=== PATIENT | female | born 1995 | race Caucasian/White ===

== ENCOUNTER 2017-06-26 15:54 | Emergency (ER) | payer SELFPAY ==
[~2017-06-26] VITALS: Ht 170.2 cm; Wt 54.4 kg
--- NOTE | 2017-06-26 17:02 | PHYS DOC ---
Past History Past Medical History: Anxiety, Other Past Surgical History: No Surgical History Smoking: Non-smoker Alcohol Use: Rarely Drug Use: None Adult General Chief Complaint Chief Complaint: BACK PAIN OR INJURY HPI HPI Patient is a 22 year old female who presents with complaint of left-sided back pain. Patient states that the pain started 3 days ago after coming home from work. 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 Patient noted that the pain was in the mid thoracic region just below her left shoulder blade. Patient states that the pain worsens with movement and when she takes a deep breath. The patient has taken ibuprofen with mild relief in symptoms. Patient's pain hours and remained persistent this prompting the patient come to the emergency department for evaluation. Patient rates her pain as 4 out of 10. Patient denies any associated symptoms with her pain including fever, nausea, hematuria, or abdominal pain. Patient denies any known trauma to the affected area. Review of Systems Review of Systems Constitutional: Denies fever or chills [] Eyes: Denies change in visual acuity, redness, or eye pain [] HENT: Denies nasal congestion or sore throat [] Respiratory: Denies cough or shortness of breath [] Cardiovascular: Denies chest pain or edema[] GI: Denies abdominal pain, nausea, vomiting, bloody stools or diarrhea [] : Denies dysuria or hematuria [] Musculoskeletal: Left-sided back pain[] Integument: Denies rash or skin lesions [] Neurologic: Denies headache, focal weakness or sensory changes [] All other systems were reviewed and found to be within normal limits, except as documented in this note. Allergies Allergies Allergies Coded Allergies Type Severity Reaction Last Updated Verified No Known Drug Allergies 12/20/14 No Physical Exam Physical Exam Constitutional: Alert, afebrile, no acute distress, vital signs stable. [] HENT: Normocephalic, atraumatic, bilateral external ears normal, oropharynx moist, no oral exudates, nose normal. [] Eyes: PERRLA, EOMI, conjunctiva normal, no discharge. [] Neck: Normal range of motion, no tenderness, supple, no stridor. [] Cardiovascular:Heart rate regular rhythm, no murmur [] Lungs & Thorax: Bilateral breath sounds clear to auscultation [] Abdomen: Bowel sounds normal, soft, no tenderness, no masses, no pulsatile masses. [] Skin: Warm, dry, no erythema, no rash. [] Back: No midline tenderness, left mid lower thoracic wall tenderness to palpation, no flank ecchymosis. [] Extremities: No tenderness, no cyanosis, no clubbing, ROM intact, no edema. [] Neurologic: Alert and oriented X 3, normal motor function, normal sensory function, no focal deficits noted. [] Current Patient Data Vital Signs Vital Signs Date Time Temp Pulse Resp B/P (MAP) Pulse Ox O2 Delivery O2 Flow Rate FiO2 06/26/17 16:05 97.7 108 16 98 Room Air Lab Results Laboratory Tests Test 06/26/17 17:00 Urine Collection Type Unknown Urine Color Yellow Urine Clarity Hazy Urine pH 5.5 Urine Specific [place] 1.020 Urine Protein Neg Urine Glucose (UA) Neg mg/dL Urine Ketones (Stick) Neg mg/dL Urine Blood Neg Urine Nitrite Neg Urine Bilirubin Neg Urine Urobilinogen Dipstick 0.2 mg/dL Urine Leukocyte Esterase Neg Urine RBC 0 /HPF Urine WBC Occ /HPF Urine Squamous Epithelial Cells Many /LPF Urine Bacteria Few /HPF Urine Mucus Slight /LPF EKG EKG Not performed[] Radiology/Procedures Radiology/Procedures Not performed[] Course & Med Decision Making Course & Med Decision Making Pertinent Labs and Imaging studies reviewed. (See chart for details) Urinalysis results negative for active infection. Patient's symptoms consistent with mid back muscle strain. Patient started on Flexeril and ibuprofen. Patient will continue on outpatient therapy with Flexeril and ibuprofen. Advised follow- up with primary doctor in 5 days for reevaluation and to return emergency department for any worsening symptoms. Patient voiced understanding and in agreement with treatment plan. Dragon Disclaimer Dragon Disclaimer This electronic medical record was generated, in whole or in part, using a voice recognition dictation system. Departure Departure: Impression: Primary Impression: Back strain Disposition: 01 HOME, SELF-CARE Condition: GOOD Referrals: PCPMILTON (PCP) Patient Instructions: Muscle Strain Additional Instructions: Follow-up with primary doctor in 5 days for reevaluation. Return to emergency department for any worsening symptoms. Scripts Ibuprofen (IBUPROFEN) 400 Mg Tablet 1 TAB PO PRN Q6HRS Y for PAIN, #20 TAB Prov: NICOLE PIMENTEL MD 06/26/17 Cyclobenzaprine Hcl (CYCLOBENZAPRINE HCL) 10 Mg Tablet 1 TAB PO QHS Y for MUSCLE PAIN, #15 TAB Prov: NICOLE PIMENTEL MD 06/26/17 Problem Qualifiers Primary Impression: Back strain Encounter type: initial encounter Qualified Codes: S39.012A - Strain of muscle, fascia and tendon of lower back, initial encounter NICOLE PIMENTEL MD Jun 26, 2017 17:02
[2017-06-26 18:05] LABS: BACTERIA,URINE FEW /HPF (0-FEW); BILIRUBIN,URINE NEG (NEG); CLARITY,URINE HAZY; COLOR,URINE YELLOW; GLUCOSE,URINE NEG (NEG); NITRITE,URINE NEG (NEG); RBC,URINE 0 /HPF (0-2); SQUAMOUS EPITHELIAL CELL,UR MANY /LPF; UROBILINOGEN,URINE 0.2 mg/dL (0.2 mg/dL); WBC,URINE OCC /HPF (0-4)
[2017-06-26] MEDS ORDERED: IBUP400T18 PO (18:11)
[2017-06-26] MEDS ORDERED: CYCL-331 PO (18:11)
[2017-06-26] MEDS ORDERED: CYCLOBENZAPRINE 10 MG TABLET. PO ONE (18:15)
[2017-06-26] MEDS ORDERED: IBUPROFEN 400 MG TABLET. PO ONE (18:15)
[2017-06-26 18:20] VITALS: BP 116/88
== END 2017-06-26 18:25 | disposition home or self-care (01) ==
LOC: ER 15:54
DX: S29.012A Strain of muscle and tendon of back wall of thorax, initial encounter (principal); F41.9 Anxiety disorder, unspecified; X58.XXXA Exposure to other specified factors, initial encounter; Y93.89 Activity, other specified; Y99.8 Other external cause status; Y92.89 Other specified places as the place of occurrence of the external cause
CPT/HCPCS: 81001; 81025; 99283

== ENCOUNTER 2018-05-02 17:56 | Emergency (ER) | payer OTHER ==
[~2018-05-02] VITALS: Ht 167.6 cm; Wt 56.7 kg
[~2018-05-02 17:56] MED LIST: CYCL-331 PO; IBUP400T18 PO
[2018-05-02] MEDS ORDERED: ACETAMINOPHEN 325 MG TABLET PO ONE (18:30)
[2018-05-02 18:35] LABS: BACTERIA,URINE 0 /HPF (0-FEW); BILIRUBIN,URINE NEG (NEG); CLARITY,URINE CLEAR; COLOR,URINE YELLOW; GLUCOSE,URINE NEG (NEG); NITRITE,URINE NEG (NEG); RBC,URINE RARE /HPF (0-2); SQUAMOUS EPITHELIAL CELL,UR FEW /LPF; UROBILINOGEN,URINE 0.2 mg/dL (0.2 mg/dL); WBC,URINE OCC /HPF (0-4)
[2018-05-02] MEDS ORDERED: ONDANSETRON PF 4 MG/2 ML VIAL. IV ONE (19:00)
[2018-05-02 19:13] LABS: BASO % 0 % (0-3); EOS # 0.1 x10^3/uL (0.0-0.7); EOS % 1 % (0-3); HEMATOCRIT 39.1 % (36.0-47.0); HEMOGLOBIN 13.7 g/dL (12.0-15.5); LYMPH # 2.4 x10^3/uL (1.0-4.8); LYMPH % 37 % (24-48); MEAN CORPUSCULAR HEMOGLOBIN 31 pg (25-35); MEAN CORPUSCULAR HGB CONC 35 g/dL (31-37); MEAN CORPUSCULAR VOLUME 88 fL (79-100); MONO # 0.5 x10^3/uL (0.0-1.1); MONO % 8 % (0-9); NEUT # 3.5 x10^3uL (1.8-7.7); NEUT % 54 % (31-73); PLATELET COUNT 181 x10^3/uL (140-400); RED BLOOD COUNT 4.44 x10^6/uL (3.50-5.40); RED CELL DISTRIBUTION WIDTH 12.7 % (11.5-14.5); WHITE BLOOD COUNT 6.5 x10^3/uL (4.0-11.0)
[2018-05-02] MEDS ORDERED: MORPHINE SULFATE 4 MG/ML DISP.SYRIN. IV ONE ×2 (20:15→21:30)
--- NOTE | 2018-05-02 21:51 | RAD ---
Obstetric ultrasound less than 14 weeks COMPARISON: None available at time of exam. HISTORY: Pelvic pain, female. TECHNIQUE: Transabdominal transducer with grayscale, color Doppler and M-mode Doppler sonography. FINDINGS: Uterus measures 10.0 x 10.0 x 7.1 cm. Maternal ovaries not visualized. Single living intrauterine fetus crown-rump length 5.6 cm and gestational sac diameter 5.4 cm with estimated combined sonographic gestational age 11 weeks 6 days and date of delivery November 15, 2018. Subjectively normal volume of amniotic fluid. heart rate 155 bpm. Maternal cervix 3.3 cm. There may be a tiny 7 mm in length marginal subchorionic hemorrhage.. Placenta appears to be posterior and covers the cervical internal loss. No pelvic free fluid. IMPRESSION: Single living intrauterine estimated sonographic gestational age of 11 weeks 6 days. There may be a tiny subcentimeter marginal subchorionic hemorrhage. See discussion above. Electronically signed by: Thierry Benitez MD (05/02/2018 9:47 PM) [facility]
[2018-05-02] MEDS ORDERED: MORPHINE SULFATE 10 MG/ML SYRINGE. ONE (22:29)
[2018-05-02] MEDS ORDERED: MORPHINE SULFATE 10 MG/ML SYRINGE. IV ONE (22:30)
[2018-05-03] MEDS ORDERED: PROCHLORPERAZINE 10 MG/2 ML VIAL. IV ONE (00:30)
--- NOTE | 2018-05-03 01:01 | RAD ---
INDICATION: PELVIC PAIN EVAL RLQ AND RT KIDNEY COMPARISON: None. FINDINGS: Focused ultrasound images of the right kidney and right lower quadrant of abdomen The appendix is not visualized. Right kidney is 9.9 cm without significant hydronephrosis. Possible tiny echogenic focus of mid pole right kidney. Could be prominent fat or a small calcification or nonobstructive stone. Partial visualization of gravid uterus IMPRESSION: 1. The appendix is not visualized. 2. No right-sided hydronephrosis. 3. Maternal right ovary has vascular flow. Electronically signed by: Jb Serna MD (05/03/2018 12:57 AM) [facility]
[2018-05-03 01:08] VITALS: BP 100/65
--- NOTE | 2018-05-03 01:48 | ED.ADGEN ---
Past History Past Medical History: No Pertinent History Past Surgical History: No Surgical History Smoking: Non-smoker Alcohol Use: None Drug Use: None Adult General Chief Complaint Chief Complaint Lower abdominal pain HPI HPI Patient is a G2, P1, estimated 11 week gestation female with confirmed IUP per OB who presents with nausea, vomiting, suprapubic and right lower quadrant pain. Onset was earlier this afternoon. Patient reports severe cramping. She states it feels as though she is in labor or pain worsen labor cramps. Denies pain pain, urinary frequency, urgency burning. No vaginal bleeding or discharge. No hematuria, history of kidney stones. No prior abdominal surgeries. No constipation or diarrhea.[] Review of Systems Review of Systems Review symptoms as per history of present illness. All other review symptoms are negative. All other systems were reviewed and found to be within normal limits, except as documented in this note. Current Medications Current Medications Current Medications Medications (Trade) Dose Ordered Sig/Jacobo Start Time Stop Time Status Last Admin Dose Admin Acetaminophen (Tylenol) 650 mg 1X ONCE 05/02/18 18:30 05/02/18 18:31 DC 05/02/18 18:36 650 MG Fentanyl Citrate (Fentanyl 2ml Vial) 50 mcg 1X ONCE 05/02/18 19:00 05/02/18 19:01 DC 05/02/18 19:02 50 MCG Morphine Sulfate (Morphine 10mg Syringe) 10 mg STK-MED ONCE 05/02/18 22:29 05/02/18 22:30 DC Morphine Sulfate (Morphine 4mg Syringe) 4 mg 1X ONCE 05/02/18 21:30 05/02/18 21:41 DC 05/02/18 21:34 4 MG Ondansetron HCl (Zofran) 4 mg 1X ONCE 05/02/18 19:00 05/02/18 19:01 DC 05/02/18 19:02 4 MG Prochlorperazine Edisylate (Compazine) 10 mg 1X ONCE 05/03/18 00:30 05/03/18 00:31 DC 05/03/18 00:29 10 MG Allergies Allergies Allergies Coded Allergies Type Severity Reaction Last Updated Verified No Known Drug Allergies 12/20/14 No Physical Exam Physical Exam Constitutional: Well developed, well nourished, no acute distress, non-toxic appearance. [] HENT: Normocephalic, atraumatic, bilateral external ears normal, oropharynx moist, no oral exudates, nose normal. [] Eyes: PERRLA, EOMI, conjunctiva normal, no discharge. [] Neck: Normal range of motion, no tenderness, supple, no stridor. [] Cardiovascular:Heart rate regular rhythm, no murmur [] Lungs & Thorax: Bilateral breath sounds clear to auscultation [] Abdomen: Bowel sounds normal, soft, right lower quadrant pain, diffuse tenderness, negative McBurney's point. [] Pelvic: Sternal genitalia, normal, scant white discharge, no bleeding, cervix closed. [] Back: No tenderness, no CVA tenderness. [] Extremities: No tenderness, no cyanosis, no clubbing, ROM intact, no edema. [] Neurologic: Alert and oriented X 3, normal motor function, normal sensory function, no focal deficits noted. [] Psychologic: Affect normal, judgement normal, mood normal. [] Current Patient Data Vital Signs Vital Signs Date Time Temp Pulse Resp B/P (MAP) Pulse Ox O2 Delivery O2 Flow Rate FiO2 05/03/18 01:08 89 19 100/65 (77) 97 Room Air 05/02/18 18:02 98.8 Lab Results Laboratory Tests Test 05/02/18 18:15 05/02/18 19:00 Urine Collection Type Unknown Urine Color Yellow Urine Clarity Clear Urine pH 6.0 Urine Specific [place] 1.015 Urine Protein Neg (NEG-TRACE) Urine Glucose (UA) Neg mg/dL (NEG) Urine Ketones (Stick) Neg mg/dL (NEG) Urine Blood Neg (NEG) Urine Nitrite Neg (NEG) Urine Bilirubin Neg (NEG) Urine Urobilinogen Dipstick 0.2 mg/dL (0.2 mg/dL) Urine Leukocyte Esterase Neg (NEG) Urine RBC Rare /HPF (0-2) Urine WBC Occ /HPF (0-4) Urine Squamous Epithelial Cells Few /LPF Urine Bacteria 0 /HPF (0-FEW) White Blood Count 6.5 x10^3/uL (4.0-11.0) Red Blood Count 4.44 x10^6/uL (3.50-5.40) Hemoglobin 13.7 g/dL (12.0-15.5) Hematocrit 39.1 % (36.0-47.0) Mean Corpuscular Volume 88 fL (79-100) Mean Corpuscular Hemoglobin 31 pg (25-35) Mean Corpuscular Hemoglobin Concent 35 g/dL (31-37) Red Cell Distribution Width 12.7 % (11.5-14.5) Platelet Count 181 x10^3/uL (140-400) Neutrophils (%) (Auto) 54 % (31-73) Lymphocytes (%) (Auto) 37 % (24-48) Monocytes (%) (Auto) 8 % (0-9) Eosinophils (%) (Auto) 1 % (0-3) Basophils (%) (Auto) 0 % (0-3) Neutrophils # (Auto) 3.5 x10^3uL (1.8-7.7) Lymphocytes # (Auto) 2.4 x10^3/uL (1.0-4.8) Monocytes # (Auto) 0.5 x10^3/uL (0.0-1.1) Eosinophils # (Auto) 0.1 x10^3/uL (0.0-0.7) Basophils # (Auto) 0.0 x10^3/uL (0.0-0.2) Maternal Serum HCG Beta Subunit 32802 mIU/mL (0-6) H EKG EKG [] Radiology/Procedures Radiology/Procedures [OB ultrasound/abdominal/kidney ultrasound: Small areas of subchorionic hemorrhage, viable IUP, no free fluid or appendix seen, no evidence of kidney stone per urology report] Course & Med Decision Making Course & Med Decision Making Pertinent Labs and Imaging studies reviewed. (See chart for details) [Poorly differentiated right lower quadrant/suprapubic pain and in 11 week gestation female. No evidence of ectopic . Appendix not 5. A or multiple doses of narcotic pain medication. Will transfer to [facility] 0 evaluation in general surgical consult later this morning.] Final Impression Final Impression [1. lower abdominal pain 2. first trimester ] Dragon Disclaimer Dragon Disclaimer This electronic medical record was generated, in whole or in part, using a voice recognition dictation system. CANDE HURTADO DO May 03, 2018 01:48
== END 2018-05-03 01:51 | disposition short-term general hospital (02) ==
LOC: ER 17:56
DX: O26.891 Other specified pregnancy related conditions, first trimester (principal); R10.31 Right lower quadrant pain; O21.9 Vomiting of pregnancy, unspecified; Z3A.11 11 weeks gestation of pregnancy
CPT/HCPCS: 36415; 76801; 81001; 84702; 85025; 86900; 86901; 93975; 96374; 96375; 96376; 99285; J0780; J2270; J2405; J3010; Q0111

== ENCOUNTER → 2018-06-18 | Outpatient (CLI) | payer OTHER ==
--- NOTE | 2018-06-18 18:36 | RAD ---
Obstetrical ultrasound, 06/18/2018: HISTORY: survey, uterine size discrepancy There is a single intrauterine fetus present in a breech orientation. The biparietal diameter measures 4.1 cm compatible with a gestational age of 18-19 weeks. This correlates well with the other measurements yielding a sonographic EDC of 11/17/2018. This correlates well with the EDC of 11/15/2018 established on the ultrasound study of 05/02/2018. Normal activity and heart motion were seen. A four-chamber heart is evident with a heart rate of 147 bpm. Fluid is identified in the bladder and stomach. The visualized portions of the spine and kidneys are unremarkable. A three-vessel umbilical cord is identified with a normal cord insertion site. A normal amount of amniotic fluid is present. The placenta lies posteriorly with no evidence of placenta previa. The cervical length is 4.7 cm. IMPRESSION: Single intrauterine fetus of 18-19 weeks gestational age which has demonstrated normal interval growth since 05/02/2018. Electronically signed by: Pete Gregory MD (06/18/2018 6:32 PM) [facility]
== END | disposition home or self-care (01) ==
LOC: US 13:45
PROVIDERS: ATTEND Obstetrics & Gynecology
DX: O26.842 Uterine size-date discrepancy, second trimester (principal); Z3A.19 19 weeks gestation of pregnancy
CPT/HCPCS: 76805

== ENCOUNTER → 2018-07-10 | Outpatient (CLI) | payer OTHER ==
[2018-07-10 15:22] LABS: BASO % 1 % (0-3); EOS % 1 % (0-3); HEMOGLOBIN 11.9 g/dL (12.0-15.5); LYMPH # 1.9 x10^3/uL (1.0-4.8); LYMPH % 27 % (24-48); MEAN CORPUSCULAR HEMOGLOBIN 32 pg (25-35); MEAN CORPUSCULAR HGB CONC 34 g/dL (31-37); MEAN CORPUSCULAR VOLUME 93 fL (79-100); MONO # 0.6 x10^3/uL (0.0-1.1); MONO % 8 % (0-9); NEUT # 4.4 x10^3uL (1.8-7.7); NEUT % 63 % (31-73); PLATELET COUNT 166 x10^3/uL (140-400); RED BLOOD COUNT 3.77 x10^6/uL (3.50-5.40); RED CELL DISTRIBUTION WIDTH 14.1 % (11.5-14.5)
== END | disposition home or self-care (01) ==
LOC: LAB 13:57
PROVIDERS: ATTEND Obstetrics & Gynecology
DX: O09.92 Supervision of high risk pregnancy, unspecified, second trimester (principal); Z3A.23 23 weeks gestation of pregnancy
CPT/HCPCS: 36415; 82947; 82950; 85025

== ENCOUNTER 2019-05-30 11:58 | Emergency (ER) | payer SELFPAY ==
[~2019-05-30] VITALS: Ht 167.6 cm; Wt 65.0 kg
[2019-05-30 13:10] LABS: BASO % 1 % (0-3); EOS # 0.1 x10^3/uL (0.0-0.7); EOS % 2 % (0-3); HEMATOCRIT 39.8 % (36.0-47.0); HEMOGLOBIN 13.4 g/dL (12.0-15.5); LYMPH # 1.3 x10^3/uL (1.0-4.8); LYMPH % 33 % (24-48); MEAN CORPUSCULAR HEMOGLOBIN 30 pg (25-35); MEAN CORPUSCULAR HGB CONC 34 g/dL (31-37); MEAN CORPUSCULAR VOLUME 91 fL (79-100); MONO # 0.4 x10^3/uL (0.0-1.1); MONO % 9 % (0-9); NEUT # 2.2 x10^3uL (1.8-7.7); NEUT % 55 % (31-73); PLATELET COUNT 204 x10^3/uL (140-400); RED CELL DISTRIBUTION WIDTH 12.9 % (11.5-14.5)
[2019-05-30 13:13] LABS: AMPHETAMINE/METHAMPHETAMINE NEG (NEG); BARBITURATES NEG (NEG); BENZODIAZEPINES NEG (NEG); CANNABINOIDS NEG (NEG); COCAINE NEG (NEG); METHADONE NEG (NEG); OPIATES NEG (NEG); PHENCYCLIDINE NEG (NEG)
[2019-05-30 13:22] LABS: ALBUMIN 3.9 g/dL (3.4-5.0); ALBUMIN/GLOBULIN RATIO 1.1 (1.0-1.7); CALCIUM 8.5 mg/dL (8.5-10.1); CREATININE 0.7 mg/dL (0.6-1.0); GFR 104.6; POTASSIUM 4.2 mmol/L (3.5-5.1); TOTAL BILIRUBIN 0.2 mg/dL (0.2-1.0); TOTAL PROTEIN 7.5 g/dL (6.4-8.2)
[2019-05-30 13:23] LABS: BACTERIA,URINE 0 /HPF (0-FEW); BILIRUBIN,URINE NEG (NEG); CLARITY,URINE HAZY; COLOR,URINE YELLOW; GLUCOSE,URINE NEG (NEG); NITRITE,URINE NEG (NEG); SQUAMOUS EPITHELIAL CELL,UR FEW /LPF; UROBILINOGEN,URINE 0.2 mg/dL (0.2 mg/dL); WBC,URINE 0 /HPF (0-4)
[2019-05-30 13:24] LABS: U PREG PATIENT NEGATIVE (NEG)
--- NOTE | 2019-05-30 15:03 | PHYS DOC ---
Past History Past Medical History: Anxiety, Depression, Other Additional Past Medical Histor: PTSD Past Surgical History: No Surgical History Smoking: Non-smoker Alcohol Use: Occasionally Drug Use: Marijuana Adult General Chief Complaint Chief Complaint: SUICIDAL IDEATION HPI HPI Patient is a 24-year-old female with a young child at home presents with depression and suicidal ideation. She states she's been battling depression for some time but seemed to get out of control after an argument with her last night. She states the argument was nonphysical and actually not very big deal but it caused her to really consider suicide and formulate a plan. She would not be specific about what the plan was. She states she feels a little bit better this morning but after talking to her family day said that she needed to come up. For evaluation. She denies any illicit drug use or alcohol use.[] Review of Systems Review of Systems Constitutional: Denies fever or chills [] Eyes: Denies change in visual acuity, redness, or eye pain [] HENT: Denies nasal congestion or sore throat [] Respiratory: Denies cough or shortness of breath [] Cardiovascular: No additional information not addressed in HPI [] GI: Denies abdominal pain, nausea, vomiting, bloody stools or diarrhea [] : Denies dysuria or hematuria [] Musculoskeletal: Denies back pain or joint pain [] Integument: Denies rash or skin lesions [] Neurologic: Denies headache, focal weakness or sensory changes [] Endocrine: Denies polyuria or polydipsia [] Psychiatric: Depressed All other systems were reviewed and found to be within normal limits, except as documented in this note. Allergies Allergies Allergies Coded Allergies Type Severity Reaction Last Updated Verified No Known Drug Allergies 12/20/14 No Physical Exam Physical Exam Constitutional: Well developed, well nourished, no acute distress, non-toxic appearance. [] HENT: Normocephalic, atraumatic, bilateral external ears normal, oropharynx moist, no oral exudates, nose normal. [] Eyes: PERRLA, EOMI, conjunctiva normal, no discharge. [] Neck: Normal range of motion, no tenderness, supple, no stridor. [] Cardiovascular:Heart rate regular rhythm, no murmur [] Lungs & Thorax: Bilateral breath sounds clear to auscultation [] Abdomen: Bowel sounds normal, soft, no tenderness, no masses, no pulsatile masses. [] Skin: Warm, dry, no erythema, no rash. [] Back: No tenderness, no CVA tenderness. [] Extremities: No tenderness, no cyanosis, no clubbing, ROM intact, no edema. [] Neurologic: Alert and oriented X 3, normal motor function, normal sensory function, no focal deficits noted. [] Psychologic: Depressed affect. [] Current Patient Data Vital Signs Vital Signs Date Time Temp Pulse Resp B/P (MAP) Pulse Ox O2 Delivery O2 Flow Rate FiO2 05/30/19 12:00 97.7 88 16 100 Room Air 05/30/19 11:58 106/75 (85) Lab Results Laboratory Tests Test 05/30/19 12:07 05/30/19 12:48 Urine Collection Type Unknown Urine Color Yellow Urine Clarity Hazy Urine pH 5.5 Urine Specific [place] >=1.030 Urine Protein Neg (NEG-TRACE) Urine Glucose (UA) Neg mg/dL (NEG) Urine Ketones (Stick) Neg mg/dL (NEG) Urine Blood Trace (NEG) Urine Nitrite Neg (NEG) Urine Bilirubin Neg (NEG) Urine Urobilinogen Dipstick 0.2 mg/dL (0.2 mg/dL) Urine Leukocyte Esterase Neg (NEG) Urine RBC 3-5 /HPF (0-2) Urine WBC 0 /HPF (0-4) Urine Squamous Epithelial Cells Few /LPF Urine Bacteria 0 /HPF (0-FEW) Urine Mucus Slight /LPF Urine Test Negative (NEG) Urine Opiates Screen Neg (NEG) Urine Methadone Screen Neg (NEG) Urine Barbiturates Neg (NEG) Urine Phencyclidine Screen Neg (NEG) Urine Amphetamine/Methamphetamine Neg (NEG) Urine Benzodiazepines Screen Neg (NEG) Urine Cocaine Screen Neg (NEG) Urine Cannabinoids Screen Neg (NEG) Urine Ethyl Alcohol Neg (NEG) White Blood Count 4.0 x10^3/uL (4.0-11.0) Red Blood Count 4.40 x10^6/uL (3.50-5.40) Hemoglobin 13.4 g/dL (12.0-15.5) Hematocrit 39.8 % (36.0-47.0) Mean Corpuscular Volume 91 fL (79-100) Mean Corpuscular Hemoglobin 30 pg (25-35) Mean Corpuscular Hemoglobin Concent 34 g/dL (31-37) Red Cell Distribution Width 12.9 % (11.5-14.5) Platelet Count 204 x10^3/uL (140-400) Neutrophils (%) (Auto) 55 % (31-73) Lymphocytes (%) (Auto) 33 % (24-48) Monocytes (%) (Auto) 9 % (0-9) Eosinophils (%) (Auto) 2 % (0-3) Basophils (%) (Auto) 1 % (0-3) Neutrophils # (Auto) 2.2 x10^3uL (1.8-7.7) Lymphocytes # (Auto) 1.3 x10^3/uL (1.0-4.8) Monocytes # (Auto) 0.4 x10^3/uL (0.0-1.1) Eosinophils # (Auto) 0.1 x10^3/uL (0.0-0.7) Basophils # (Auto) 0.0 x10^3/uL (0.0-0.2) Sodium Level 143 mmol/L (136-145) Potassium Level 4.2 mmol/L (3.5-5.1) Chloride Level 107 mmol/L (98-107) Carbon Dioxide Level 26 mmol/L (21-32) Anion Gap 10 (6-14) Blood Urea Nitrogen 11 mg/dL (7-20) Creatinine 0.7 mg/dL (0.6-1.0) Estimated GFR (Cockcroft-Gault) 104.6 BUN/Creatinine Ratio 16 (6-20) Glucose Level 94 mg/dL (70-99) Calcium Level 8.5 mg/dL (8.5-10.1) Total Bilirubin 0.2 mg/dL (0.2-1.0) Aspartate Amino Transferase (AST) 11 U/L (15-37) L Alanine Aminotransferase (ALT) 15 U/L (14-59) Alkaline Phosphatase 96 U/L (46-116) Total Protein 7.5 g/dL (6.4-8.2) Albumin 3.9 g/dL (3.4-5.0) Albumin/Globulin Ratio 1.1 (1.0-1.7) Ethyl Alcohol Level < 10 mg/dL (0-10) EKG EKG [] Radiology/Procedures Radiology/Procedures [] Course & Med Decision Making Course & Med Decision Making Pertinent Labs and Imaging studies reviewed. (See chart for details) I reviewed the safety plan and agree that the patient is safe for discharge home. Dragon Disclaimer Dragon Disclaimer This electronic medical record was generated, in whole or in part, using a voice recognition dictation system. Departure Departure: Impression: Primary Impression: Depression Additional Impression: Suicidal ideation Disposition: HOME, SELF-CARE Condition: STABLE Referrals: JONNA SUAREZ (PCP) Patient Instructions: Depression, Adult, Suicidal Feelings, How to Help Yourself Additional Instructions: Return to the emergency department with any new or concerning symptoms Problem Qualifiers Primary Impression: Depression Depression Type: major depressive disorder Major depression recurrence: recurrent Active/Remission status: currently active Major depression episode severity: moderate Qualified Codes: F33.1 - Major depressive disorder, recurrent, moderate REHAN LEONARD DO May 30, 2019 15:03
[2019-05-30 15:28] VITALS: BP 127/69
== END 2019-05-30 15:30 | disposition home or self-care (01) ==
LOC: ER 11:58
DX: F33.1 Major depressive disorder, recurrent, moderate (principal); F41.9 Anxiety disorder, unspecified; F43.10 Post-traumatic stress disorder, unspecified
CPT/HCPCS: 36415; 80053; 80307; 81001; 81025; 85025; 99284; G0480